=== PATIENT | female | born 1945 | race Caucasian/White ===

== ENCOUNTER 2020-11-11 07:02 | Observation (INO) | payer OTHER ==
[~2020-11-11] VITALS: Ht 160 cm; Wt 61.2 kg
[~2020-11-11 07:02] MED LIST: ASPIR 8181 MG PO; CARAFATE 1 GM TA1 G1 PO; CARAFATE 1 GM TA1 GM PO; FISH OIL DR 1,1 EAC1 PO; FOLIC ACID 40400 MCG PO; GLUCOSAMINE HC500 MG PO; LIORESAL 10 MG10 MG PO; NEXIUM40 MG PO; OMEPRAZOLE40 MG PO; PRAMIPEXOLE0.125 MG PO; PRAVACHOL80 MG PO; PROTONIX40 M1 PO; RED YEAST RICE600 M1 PO; REGLAN 10 MG TA10 MG PO; WOMEN'S DAILY1 EAC1 PO; XANAX 0.25 MG0.25 MG PO; ZESTORETIC 20-1 EAC3 PO
[2020-11-11 07:14] VITALS: BP 160/65
[2020-11-11] MEDS ORDERED: NEURONTIN 300M300 M2 (07:19)
[2020-11-11] MEDS ORDERED: LIPITOR 20 MG T20 M1 PO (07:19)
[2020-11-11 07:33] LABS: ABSOLUTE LYMPHOCYTES 0.8 thou/uL (0.8-5.3); ABSOLUTE MONOCYTES 0.4 thou/uL (0.0-1.2); ABSOLUTE NEUTROPHILS 4.6 thou/uL (1.6-8.1); BASOPHILS 0.2 %; EOSINOPHILS 0.1 %; HEMATOCRIT 38.8 % (37.0-47.0); HEMOGLOBIN 13.3 gm/dL (12.0-15.0); LYMPHOCYTES 14.4 %; MCH 31.2 pg (26.0-34.0); MCHC 34.3 g/dL (28.0-37.0); MCV 91.1 fL (80.0-100.0); MONOCYTES 7.1 %; MPV 7.8 fl. (7.2-11.1); NUCLEATED RBCS 0 /100WBC; PLATELET COUNT* 256 thou/uL (150-400); POLYS 78.2 %; RBC 4.26 mil/uL (4.20-5.00); RDW-CV 12.9 % (10.5-14.5); WBC 5.9 thou/uL (4.0-11.0)
[2020-11-11 07:45] LABS: CALCIUM 9.2 mg/dL (8.5-10.1); CREATININE 0.7 mg/dL (0.6-1.3)
[2020-11-11 07:50] LABS: ALBUMIN 4.5 g/dL (3.4-5.0); TOTAL BILIRUBIN 0.7 mg/dL (<0.1-1.0); TOTAL PROTEIN 8.3 g/dL (6.4-8.2)
[2020-11-11 07:51] LABS: POTASSIUM 2.7 mmol/L (3.5-5.1)
[2020-11-11 08:31] LABS: URINE BILIRUBIN NEGATIVE (Negative); URINE BLOOD 1+ (Negative); URINE CLARITY CLEAR; URINE COLOR YELLOW; URINE GLUCOSE-RANDOM NEGATIVE (Negative); URINE KETONES TRACE (Negative); URINE NITRITE-REFLEX NEGATIVE (Negative); URINE PROTEIN 1+ (Negative); URINE SPECIFIC GRAVITY 1.015 (1.005-1.030); URINE UROBILINOGEN 0.2 E.U./dl (0.2-1.0)
[2020-11-11 08:34] LABS: URINE LEUKOCYTES-REFLEX 2+ (Negative)
[2020-11-11 08:46] LABS: BACTERIA-REFLEX 1-9 Few /HPF (None Seen); CASTS None Seen /LPF (None Seen); CRYSTALS None Seen /LPF (None Seen); MUCUS None Seen strn/LPF (None Seen); SQUAMOUS 0-3 Few /LPF (0-3); URINE RBC 3-10 Few /HPF (0-2); URINE WBC-REFLEX 6-15 Few /HPF (0-5)
[2020-11-11 11:05] LABS: CALCIUM 8.6 mg/dL (8.5-10.1); CREATININE 0.8 mg/dL (0.6-1.3); POTASSIUM 3.2 mmol/L (3.5-5.1)
[2020-11-11 11:08] LABS: MAGNESIUM 2.4 mg/dL (1.8-2.4); PHOSPHORUS* 3.4 mg/dL (2.5-4.9)
--- NOTE | 2020-11-11 11:32 | EKG ---
[place] [address] ELECTROCARDIOGRAM REPORT Name: TERA CARMONA Room: [facility]9 ADM IN .R.#: [id number] Admission: 11/11/20 Attend Phys: Haresh Katz, Discharge: Date of : 45 Date of Service: 11/11/20 0717 Report #: [id number] THIS REPORT FOR: //name// [facility] ED Test Date: 2020-11-11 Test Time: 07:17:50 Pat Name: TERA CARMONA Department: Room: [facility] Gender: F Television Installer: JARED : 1945 Requested By: Gianni Olvera Order Number: [id number] MD: Michelet Valencia Measurements Intervals Golden Rate: 76 P: 3 DC: 137 QRS: 52 QRSD: 112 T: 51 QT: 456 QTc: 513 Interpretive Statements Sinus rhythm Probable left ventricular hypertrophy Prolonged QT interval Baseline wander in lead(s) V1 Compared to ECG 01/12/2015 10:58:14 Prolonged QT interval now present ST (T wave) deviation no longer present Electronically Signed On 11-11-2020 11:31:53 CDT by Michelet Valencia [email or web address] <ELECTRONICALLY SIGNED> By: Michelet Valencia MD, [facility] 11/11/20 1131 6 6 Michelet Valencia MD, [facility] /EPI
[2020-11-11 12:15] VITALS: BP 144/53
[2020-11-11 15:20] VITALS: BP 145/46
[2020-11-11 15:30] VITALS: BP 163/57
--- NOTE | 2020-11-11 18:45 | NUR ---
PT IS ALERT AND ORIENTED X 4. PT C/O NAUSEA. ZOFRAN GIVEN. IVF REMAIN INFUSING. DENIES ANY PAIN AT THIS TIME. PT REMAINS SR ON THE MONITOR. CALL LIGHT WITHIN REACH.
[2020-11-11 20:00] VITALS: BP 153/64
[2020-11-12 00:36] VITALS: BP 148/52
[2020-11-12 03:50] VITALS: BP 155/50
[2020-11-12 04:22] LABS: ABSOLUTE LYMPHOCYTES 1.5 thou/uL (0.8-5.3); ABSOLUTE MONOCYTES 0.4 thou/uL (0.0-1.2); ABSOLUTE NEUTROPHILS 2.4 thou/uL (1.6-8.1); BASOPHILS 0.3 %; EOSINOPHILS 0.7 %; HEMATOCRIT 33.5 % (37.0-47.0); HEMOGLOBIN 11.6 gm/dL (12.0-15.0); LYMPHOCYTES 34.5 %; MCH 31.6 pg (26.0-34.0); MCHC 34.5 g/dL (28.0-37.0); MCV 91.5 fL (80.0-100.0); MONOCYTES 8.5 %; MPV 8.1 fl. (7.2-11.1); NUCLEATED RBCS 0 /100WBC; PLATELET COUNT* 194 thou/uL (150-400); RBC 3.66 mil/uL (4.20-5.00); RDW-CV 12.8 % (10.5-14.5); WBC 4.2 thou/uL (4.0-11.0)
[2020-11-12 04:31] LABS: CALCIUM 8.2 mg/dL (8.5-10.1); CREATININE 0.6 mg/dL (0.6-1.3)
[2020-11-12 06:05] LABS: POTASSIUM 2.9 mmol/L (3.5-5.1)
--- NOTE | 2020-11-12 06:09 | NUR ---
PT ALERT ORIENTED. HOME AIDE TRACING SR/SB. AM POTASSIUM 2.9. 1ST DOSE OF REPLACEMENT GIVEN. NEXT DOSE AT 0800. NS AT 100MLS/HR. AMBULATING TO BR WITH STAND BY ASSIST.
[2020-11-12 08:25] VITALS: BP 139/59
--- NOTE | 2020-11-12 10:00 | CON ---
[address] [address] CONSULTATION Name: KRISTINETERA Maksim Room: [address] IN M.R.#: [id number] Admission: 11/11/20 Attend Phys: Haresh Katz MD Discharge: Date of : 45 Report #: [id number] THIS REPORT FOR: cc: Vandana Price Maggie M. DO Holkins, John M. MD [facility] ~ DOC #: [id number] Michelet Valencia MD [facility] DATE OF CONSULTATION: 11/11/2020 CARDIOLOGY CONSULTATION LOCATION: The patient is in room 232. HISTORY OF PRESENT ILLNESS: The patient is a very pleasant 75-year-old female, who presented to the hospital with persistent nausea and vomiting. This has been present since Saturday. She typically describes severe migraines, followed by nausea and vomiting and that occurred on this occasion. Nausea and vomiting persisted at the time of her admission. She was noted to be hypokalemic in the ER in the context of a marked volume loss and persistent vomiting. She denied chest pain at any time. She did have a minimal increase in troponin values of 0.13, 0.16, and 0.14 having been obtained. The patient does have a history of hypertension. There is also a history of mild hyperlipidemia. MEDICATIONS: Included lisinopril/hydrochlorothiazide, glucosamine, folic acid, aspirin, metoclopramide, alprazolam, gabapentin and atorvastatin. SOCIAL HISTORY: The patient is a nonsmoker. REVIEW OF SYSTEMS: Remarkable for the following: GASTROINTESTINAL: She presented with significant and protracted nausea and vomiting. HEENT: She describes frequent migraine headaches with subsequent nausea and vomiting. Remainder of the 10-point review of systems is unremarkable. PHYSICAL EXAMINATION: GENERAL: Demonstrates a nondistressed appearing, alert, elderly female. VITAL SIGNS: Blood pressure is 130/70, pulse rate is 78, respirations are 18 per minute. NECK: Jugular venous pressure is normal. Carotids are 1-2+. [place] [address] CONSULTATION Name: TERA CARMONA Room: [address] IN [facility].#: [id number] Admission: 11/11/20 Attend Phys: Haresh Katz MD Discharge: Date of : 45 Report #: [id number] CHEST: Clear. HEART: Reveals normal first and second heart sounds with a faint systolic murmur. ABDOMEN: Soft and mildly tender without rebound. EXTREMITIES: Well perfused without edema, clubbing or cyanosis. Electrocardiogram reveals sinus rhythm, possible LVH, no ischemic ST-T changes are noted. Troponins, as noted above, are 0.13, 0.16 and 0.14, mildly elevated on 3 occasions. Lab reveals a potassium of 3.2, sodium 141, BUN 17, creatinine 0.8, glucose 108. ASSESSMENT: 1. Protracted nausea and vomiting. 2. Mild increase in troponin I without other evidence to suggest myocardial injury. 3. History of hypertension. 4. Hypokalemia, related to persistent nausea and vomiting. 5. Migraine headaches. RECOMMENDATIONS: 1. Continued efforts to replete volume and treat her hypokalemia. 2. I see no evidence to suggest an acute coronary syndrome in this context. We will reassess her in the a.m. to ascertain that there are no cardiovascular issues. Thank you for allowing us to see the patient in consultation. Michelet Valencia MD [facility] <ELECTRONICALLY SIGNED> By: Michelet Valencia MD, [facility] 11/12/20 1000 1526 1921Michelet Valencia MD, [facility] /nt
[2020-11-12 12:17] VITALS: BP 139/56
[2020-11-12] MEDS ORDERED: POTASSIUM20 PO (12:27)
[2020-11-12 12:44] LABS: CALCIUM 8.5 mg/dL (8.5-10.1); CREATININE 0.7 mg/dL (0.6-1.3); POTASSIUM 3.3 mmol/L (3.5-5.1)
[2020-11-12 13:35] VITALS: BP 139/56
--- NOTE | 2020-11-12 14:09 | NUR ---
RECEIVED REPORT AROUND 07. ASSUMED CARE. VS AND ASSESSMENT CHARTED. IV INTACT RIGHT AC. PT TOOK SHOWER THIS AM. HEART MONITOR ATTACHED AT SR. PT UP ADLIB TO STAND BY ASSIST. MEDS GIVEN PER AUG. HOURLY ROUNDING PERFORMED. DISCHARGE ORDERS RECEIVED. IV TAKEN OUT. HEART MONITOR OFF. DISCHARGE PACKET GONE OVER WITH PT. COMMUNICATED UNDERSTANDING. PT LEFT UNIT VIA AMBULATORY WITH ALL BELONGINGS AND NURSING STAFF AT 1400.
== END 2020-11-12 14:00 | disposition home or self-care (01) ==
LOC: M.ERS 07:02 → M.2W 08:26 → M.TBA-ER 08:26 → M.2W 15:23
PROVIDERS: Family Medicine; ADMIT Internal Medicine; ATTEND Internal Medicine
DX: R11.2 Nausea with vomiting, unspecified (principal); E86.0 Dehydration; Z20.822 Contact with and (suspected) exposure to COVID-19; E87.6 Hypokalemia; K14.6 Glossodynia; I10 Essential (primary) hypertension; G43.909 Migraine, unspecified, not intractable, without status migrainosus; K21.9 Gastro-esophageal reflux disease without esophagitis; Z79.899 Other long term (current) drug therapy

== ENCOUNTER 2020-12-28 16:43 | Emergency (ER) | payer OTHER ==
[~2020-12-28] VITALS: Ht 160 cm; Wt 62.6 kg
[~2020-12-28 16:43] MED LIST changes: +LIPITOR 20 MG T20 M1 PO; +NEURONTIN 300M300 M2; +POTASSIUM20 PO
[2020-12-28 20:49] VITALS: BP 142/79
== END 2020-12-28 20:50 | disposition home or self-care (01) ==
LOC: M.ERS 16:43
DX: R20.0 Anesthesia of skin (principal); K21.9 Gastro-esophageal reflux disease without esophagitis; I10 Essential (primary) hypertension; M19.90 Unspecified osteoarthritis, unspecified site; Z90.710 Acquired absence of both cervix and uterus; Z90.49 Acquired absence of other specified parts of digestive tract; Z88.1 Allergy status to other antibiotic agents; Z88.6 Allergy status to analgesic agent